=== PATIENT | female | born 1955 | race Caucasian/White ===

== ENCOUNTER → 2017-06-23 | Outpatient (CLI) | payer BC, MEDICAID ==
[2017-06-23 10:42] LABS: HEMATOCRIT 40.8 % (36.0-47.0); HEMOGLOBIN 13.4 g/dL (12.0-15.5); HGB HCT DIFFERENCE -0.6; MEAN CORPUSCULAR HEMOGLOBIN 29.4 pg (27.0-33.4); MEAN CORPUSCULAR HGB CONC 32.8 g/dL (32.0-36.0); MEAN CORPUSCULAR VOLUME 90 fl (80-97); PROTHROMBIN TIME 13.8 SEC (11.4-15.4); RED BLOOD COUNT 4.56 10^6/uL (3.72-5.28); RED CELL DISTRIBUTION WIDTH 13.6 % (11.5-14.0); WHITE BLOOD COUNT 4.7 10^3/uL (4.0-10.5)
[2017-06-23 10:43] LABS: PARTIAL THROMBOPLASTIN TIME 29.9 SEC (23.5-35.8)
[2017-06-23 10:56] LABS: ANION GAP 16 (5-19); BLOOD UREA NITROGEN 14 mg/dL (7-20); CALCIUM 9.7 mg/dL (8.4-10.2); CARBON DIOXIDE 28 mmol/L (22-30); CHLORIDE 96 mmol/L (98-107); CREATININE RESULT 0.64 mg/dL (0.52-1.25); GLUCOSE 344 mg/dL (75-110); POTASSIUM 4.1 mmol/L (3.6-5.0)
== END ==
LOC: OD 09:09
PROVIDERS: ATTEND Internal Medicine Interventional Cardiology
DX: I25.10 Atherosclerotic heart disease of native coronary artery without angina pectoris (principal)
CPT/HCPCS: 36415; 80048; 85027; 85610; 85730

== ENCOUNTER → 2017-09-29 | Outpatient (CLI) | payer BC ==
[2017-09-29 13:44] LABS: ABSOLUTE EOSINOPHILS # (AUTO) 0.2 10^3/uL (0.0-0.6); ABSOLUTE LYMPHOCYTES (AUTO) 2.1 10^3/uL (0.5-4.7); ABSOLUTE MONOCYTES (AUTO) 0.5 10^3/uL (0.1-1.4); ABSOLUTE NEUT (AUTO) 3.4 10^3/uL (1.7-8.2); BASOPHILS % (AUTO) 0.6 % (0-2); EOSINOPHILS % (AUTO) 3.3 % (0-6); HEMATOCRIT 42.1 % (36.0-47.0); HEMOGLOBIN 14.1 g/dL (12.0-15.5); LYMPHOCYTES % (AUTO) 33.2 % (13-45); MEAN CORPUSCULAR HEMOGLOBIN 29.4 pg (27.0-33.4); MEAN CORPUSCULAR HGB CONC 33.4 g/dL (32.0-36.0); MEAN CORPUSCULAR VOLUME 88 fl (80-97); MONOCYTES % (AUTO) 8.5 % (3-13); PLATELET COUNT 261 10^3/uL (150-450); RED BLOOD COUNT 4.78 10^6/uL (3.72-5.28); SEGMENTED NEUTROPHILS % (AUTO) 54.4 % (42-78); TOTAL CELLS COUNTED % (AUTO) 100 %; WHITE BLOOD COUNT 6.3 10^3/uL (4.0-10.5)
[2017-09-29 13:54] LABS: INTERNATIONAL RATION (INR) 0.99; PROTHROMBIN TIME 13.8 SEC (11.4-15.4)
[2017-09-29 13:55] LABS: PARTIAL THROMBOPLASTIN TIME 29.2 SEC (23.5-35.8)
[2017-09-29 14:09] LABS: ANION GAP 10 (5-19); BLOOD UREA NITROGEN 13 mg/dL (7-20); CALCIUM 9.3 mg/dL (8.4-10.2); CARBON DIOXIDE 28 mmol/L (22-30); CHLORIDE 99 mmol/L (98-107); GLUCOSE 283 mg/dL (75-110); POTASSIUM 4.2 mmol/L (3.6-5.0); SODIUM 136.7 mmol/L (137-145)
== END ==
LOC: OD 12:31
PROVIDERS: ATTEND Internal Medicine Interventional Cardiology
DX: Z01.812 Encounter for preprocedural laboratory examination (principal)
CPT/HCPCS: 36415; 80048; 85025; 85610; 85730

== ENCOUNTER → 2018-02-21 | Outpatient (CLI) | payer BC ==
--- NOTE | 2018-02-22 09:29 | WOMENS IMAGING REPORT ---
EXAM DESCRIPTION: BILAT SCREENING MAMMO W/CAD COMPLETED DATE/TIME: 02/21/2018 2:14 pm REASON FOR STUDY: SCREENING MAMMO Z12.31 ENCNTR SCREEN MAMMOGRAM FOR MALIGNANT NEOPLASM OF SAUNDRA COMPARISON: None. TECHNIQUE: Standard craniocaudal and mediolateral oblique views of each breast recorded using [employer] l acquisition. LIMITATIONS: None. FINDINGS: RIGHT BREAST MASSES: No suspicious masses. CALCIFICATIONS: No new or suspicious calcifications. ARCHITECTURAL DISTORTION: None. DEVELOPING DENSITY: None. ASYMMETRY: None noted. OTHER: No other significant findings. LEFT BREAST MASSES: No suspicious masses. CALCIFICATIONS: No new or suspicious calcifications. ARCHITECTURAL DISTORTION: None. DEVELOPING DENSITY: 9 mm developing density on the MLO view inferiorly 9 cm from the nipple. ASYMMETRY: None noted. OTHER: No other significant findings. Read with the assistance of CAD. .[facility] - R2 Cenova Version 1.3 .[facility] Imaging - R2 Cenova Version 1.3 .[facility] Imaging - R2 Cenova Version 2.4 .[facility] - R2 Cenova Version 2.4 .[facility] - R2 Gas Plant Repairer Version 9.2 IMPRESSION: 9 mm developing density on the left for which true lateral view, exaggerated CC views, t omosynthesis and potentially ultrasound will be performed. Alternatively, cone compression views cou ld be performed rather than tomosynthesis. BREAST DENSITY: b. There are scattered areas of fibroglandular density. BIRAD: 0 Incomplete: Needs Additional Imaging Evaluation and/or prior Mammograms for Comparison. RECOMMENDATION: RECOMMENDED FOLLOW-UP: Additional views and potentially ultrasound of the left breas t. The patient will be contacted for additional imaging. COMMENT: The patient has been notified of the results by letter per SA requirements. Additional no tification policies are in place for contacting patient with suspicious or incomplete findings. Quality ID #[id number]: The [employer] recommends an annual screening mammogram for women aged 40 years or over. This facility utilizes a reminder system to ensure that all patients receive reminder letters, and/or direct phone calls for appointments. This includes reminders for routine scr eening mammograms, diagnostic mammograms, or other Breast Imaging Interventions when appropriate. Th is patient will be placed in the appropriate reminder system. The [employer] (ACR) has developed recommendations for screening MRI of the breast s in certain patient populations, to be used in conjunction with mammography. Breast MRI surveillanc e may be appropriate for women with more than 20% lifetime risk of developing breast cancer as deter mined by genetic testing, significant family history of the disease, or history of mantle radiation f or Hodgkins Disease. ACR Practice Guidelines 2008. TECHNICAL DOCUMENTATION: FINDING NUMBER: (1) ASSESSMENT: (1) JOB ID: [id number] [employer]- All Rights Reserved Reading location - IP/workstation name: [email or web address]
== END ==
LOC: WI 13:03
PROVIDERS: ATTEND Physician Assistant Medical
DX: Z12.31 Encounter for screening mammogram for malignant neoplasm of breast (principal); R92.2 Inconclusive mammogram
CPT/HCPCS: 77067

== ENCOUNTER → 2018-03-02 | Outpatient (CLI) | payer BC ==
--- NOTE | 2018-03-04 08:10 | WOMENS IMAGING REPORT ---
EXAM DESCRIPTION: LEFT DIAGNOSTIC MAMMO W/CAD; U/S BREAST UNILAT LIMITED COMPLETED DATE/TIME: 03/02/2018 11:38 am; 03/02/2018 11:39 am REASON FOR STUDY: INCONCLUSIVE; R92.2; N63.20 R92.2 INCONCLUSIVE MAMMOGRAM COMPARISON: Multiple mammograms since 2007 TECHNIQUE: Cone compression Standard craniocaudal and mediolateral oblique images, left whole breast 90 mediolateral view recorded with digital acquisition. Left breast ultrasound was also performed LIMITATIONS: None. FINDINGS: BREAST: Left MASSES: A well-circumscribed low-density mammographic nodule is present along the lower outer quadran t, about 9 mm in size. This correlates with a sebaceous cyst at ultrasound today. CALCIFICATIONS: No new or suspicious calcifications. ARCHITECTURAL DISTORTION: None. DEVELOPING DENSITY: None. ASYMMETRY: None noted. OTHER: No other significant findings. Read with the assistance of CAD. .[facility] - R2 Cenova Version 1.3 .[facility] Imaging - R2 Cenova Version 1.3 .[facility] Imaging - R2 Cenova Version 2.4 .[facility] - R2 Cenova Version 2.4 .[facility] - R2 [employer] Version 9.2 Left breast ultrasound: Ultrasound of the inframammary fold was performed. At the 4 to 5 o'clock position left breast, just deep to the skin surface a well-circumscribed 9 x 7 mm hypoechoic cyst with low level internal echoes is present. No internal color flow. This is a benign sebaceous cyst. IMPRESSION: No mammographic or sonographic evidence for malignancy left breast. BREAST DENSITY: b. There are scattered areas of fibroglandular density. BIRAD: 2 Benign findings. RECOMMENDATION: RECOMMENDED FOLLOW UP: Please continue yearly bilateral screening mammography/ tomos ynthesis in February 2019. SPECIFIC INTERVENTION/IMAGING/CONSULTATION RECOMMENDED:No additional intervention/ imaging/consultati on needed at this time. COMMUNICATION:Patient notified by letter COMMENT: The patient has been notified of the results by letter per MQSA requirements. Additional no tification policies are in place for contacting patient with suspicious or incomplete findings. Quality ID #[id number]: The [employer] recommends an annual screening mammogram for women aged 40 years or over. This facility utilizes a reminder system to ensure that all patients receive reminder letters, and/or direct phone calls for appointments. This includes reminders for routine scr eening mammograms, diagnostic mammograms, or other Breast Imaging Interventions when appropriate. Th is patient will be placed in the appropriate reminder system. The [employer] (ACR) has developed recommendations for screening MRI of the breast s in certain patient populations, to be used in conjunction with mammography. Breast MRI surveillanc e may be appropriate for women with more than 20% lifetime risk of developing breast cancer as deter mined by genetic testing, significant family history of the disease, or history of mantle radiation f or Hodgkins Disease. ACR Practice Guidelines 2008. TECHNICAL DOCUMENTATION: FINDING NUMBER: (1) ASSESSMENT: (1) JOB ID: [id number] [employer]- All Rights Reserved Reading location - IP/workstation name: [email or web address]
--- NOTE | 2018-03-04 08:10 | WOMENS IMAGING REPORT ---
EXAM DESCRIPTION: LEFT DIAGNOSTIC MAMMO W/CAD; U/S BREAST UNILAT LIMITED COMPLETED DATE/TIME: 03/02/2018 11:38 am; 03/02/2018 11:39 am REASON FOR STUDY: INCONCLUSIVE; R92.2; N63.20 R92.2 INCONCLUSIVE MAMMOGRAM COMPARISON: Multiple mammograms since 2007 TECHNIQUE: Cone compression Standard craniocaudal and mediolateral oblique images, left whole breast 90 mediolateral view recorded with digital acquisition. Left breast ultrasound was also performed LIMITATIONS: None. FINDINGS: BREAST: Left MASSES: A well-circumscribed low-density mammographic nodule is present along the lower outer quadran t, about 9 mm in size. This correlates with a sebaceous cyst at ultrasound today. CALCIFICATIONS: No new or suspicious calcifications. ARCHITECTURAL DISTORTION: None. DEVELOPING DENSITY: None. ASYMMETRY: None noted. OTHER: No other significant findings. Read with the assistance of CAD. .[facility] - R2 Cenova Version 1.3 .[facility] Imaging - R2 Cenova Version 1.3 .[facility] Imaging - R2 Cenova Version 2.4 .[facility] - R2 Cenova Version 2.4 .[facility] - R2 Power Generation Engineer Version 9.2 Left breast ultrasound: Ultrasound of the inframammary fold was performed. At the 4 to 5 o'clock position left breast, just deep to the skin surface a well-circumscribed 9 x 7 mm hypoechoic cyst with low level internal echoes is present. No internal color flow. This is a benign sebaceous cyst. IMPRESSION: No mammographic or sonographic evidence for malignancy left breast. BREAST DENSITY: b. There are scattered areas of fibroglandular density. BIRAD: 2 Benign findings. RECOMMENDATION: RECOMMENDED FOLLOW UP: Please continue yearly bilateral screening mammography/ tomos ynthesis in February 2019. SPECIFIC INTERVENTION/IMAGING/CONSULTATION RECOMMENDED:No additional intervention/ imaging/consultati on needed at this time. COMMUNICATION:Patient notified by letter COMMENT: The patient has been notified of the results by letter per MQSA requirements. Additional no tification policies are in place for contacting patient with suspicious or incomplete findings. Quality ID #[id number]: The [employer] recommends an annual screening mammogram for women aged 40 years or over. This facility utilizes a reminder system to ensure that all patients receive reminder letters, and/or direct phone calls for appointments. This includes reminders for routine scr eening mammograms, diagnostic mammograms, or other Breast Imaging Interventions when appropriate. Th is patient will be placed in the appropriate reminder system. The [employer] (ACR) has developed recommendations for screening MRI of the breast s in certain patient populations, to be used in conjunction with mammography. Breast MRI surveillanc e may be appropriate for women with more than 20% lifetime risk of developing breast cancer as deter mined by genetic testing, significant family history of the disease, or history of mantle radiation f or Hodgkins Disease. ACR Practice Guidelines 2008. TECHNICAL DOCUMENTATION: FINDING NUMBER: (1) ASSESSMENT: (1) JOB ID: [id number] [employer]- All Rights Reserved Reading location - IP/workstation name: [email or web address]
== END ==
LOC: WI 11:03
PROVIDERS: ATTEND Physician Assistant Medical
DX: N60.82 Other benign mammary dysplasias of left breast (principal)
CPT/HCPCS: 76642

== ENCOUNTER → 2019-04-28 | Outpatient (CLI) | payer MEDICARE, MEDICAID ==
--- NOTE | 2019-04-29 10:00 | XCELERA REPORT ---
[address] [facility] [address] Lower Extremity Venous Evaluation Procedure: Color flow and duplex imaging of the veins of the right lower extremity as well as the left Common Femoral vein. Right Sided Venous Evaluation Normal vessel filling wall to wall, compression and augmentation as well as Colour flow down to the infrageniculate veins. Left Sided Venous Evaluation The left common femoral vein is fully compressible. Spontaneous and phasic flow is present in the left common femoral vein. Interpretation Summary No duplex evidence of DVT or obstruction in the right lower extremity nor in the left Common Femoral vein. Name: KENDAL DALTON Age: 63 yrs Gender: Female : 1955 Patient Status: Outpatient Patient Location: Study Date: 04/28/2019 04:45 PM Reason For Study: RLE PAIN EDEMA Ordering Physician: VINCE ANDERSON Performed By: Viry Berrios : VINCE ANDERSON > Cory Alejandra
== END ==
LOC: SP 16:12
PROVIDERS: ATTEND Physician Assistant
DX: R60.9 Edema, unspecified (principal); M79.604 Pain in right leg
CPT/HCPCS: 93971

== ENCOUNTER → 2019-05-01 | Outpatient (CLI) | payer MEDICARE, MEDICAID ==
--- NOTE | 2019-05-02 13:09 | RADIOLOGY REPORT (SQ) ---
EXAM DESCRIPTION: MRI RT LOWER EXTREMITY WITHOUT COMPLETED DATE/TIME: 05/01/2019 9:05 pm REASON FOR STUDY: S91.109A UNSP OPEN WOUND OF UNSP TOE(S) W/O DAMAGE TO NAIL, INIT S91.109A UNSP OP EN WOUND OF UNSP TOE(S) W/O DAMAGE TO NAIL, COMPARISON: None. TECHNIQUE: Multiplanar imaging of the right forefoot to include fat and fluid sensitive sequences. LIMITATIONS: Motion. Fat saturation artifact. FINDINGS: BONE MARROW: No significant marrow abnormality. SOFT TISSUES: Edema in the soft tissues of the 2nd through the 5th phalanges. No abscess or large he matoma. OTHER: No other significant finding. IMPRESSION: NO EVIDENCE FOR OSTEOMYELITIS. TECHNICAL DOCUMENTATION: JOB ID: [id number] [employer]- All Rights Reserved Reading location - IP/workstation name: [email or web address]
== END ==
LOC: RAD 19:40
PROVIDERS: ATTEND Physician Assistant
DX: S91.109A Unspecified open wound of unspecified toe(s) without damage to nail, initial encounter (principal); L03.90 Cellulitis, unspecified; X58.XXXA Exposure to other specified factors, initial encounter

== ENCOUNTER 2019-10-17 15:50 | Emergency (ER) | payer OTHER, MEDICAID ==
[2019-10-17] MEDS ORDERED: NITROGLYCERIN 2% OINTMENT 1 GM PACKET TP ONE (16:16)
[2019-10-17 16:21] LABS: ABSOLUTE BASOPHILS # (AUTO) 0.1 10^3/uL (0.0-0.2); ABSOLUTE EOSINOPHILS # (AUTO) 0.1 10^3/uL (0.0-0.6); ABSOLUTE MONOCYTES (AUTO) 0.7 10^3/uL (0.1-1.4); ABSOLUTE NEUT (AUTO) 3.9 10^3/uL (1.7-8.2); BASOPHILS % (AUTO) 0.7 % (0-2); EOSINOPHILS % (AUTO) 1.8 % (0-6); HEMATOCRIT 41.5 % (36.0-47.0); HEMOGLOBIN 14.1 g/dL (12.0-15.5); LYMPHOCYTES % (AUTO) 38.7 % (13-45); MEAN CORPUSCULAR HEMOGLOBIN 28.9 pg (27.0-33.4); MEAN CORPUSCULAR HGB CONC 34.1 g/dL (32.0-36.0); MEAN CORPUSCULAR VOLUME 85 fl (80-97); MONOCYTES % (AUTO) 9.3 % (3-13); PLATELET COUNT 305 10^3/uL (150-450); RED CELL DISTRIBUTION WIDTH 15.1 % (11.5-14.0); SEGMENTED NEUTROPHILS % (AUTO) 49.5 % (42-78); TOTAL CELLS COUNTED % (AUTO) 100 %; WHITE BLOOD COUNT 7.9 10^3/uL (4.0-10.5)
--- NOTE | 2019-10-17 16:23 | EKG REPORT ---
SEVERITY:- ABNORMAL ECG - SINUS TACHYCARDIA VENTRICULAR PREMATURE COMPLEX LEFT BUNDLE BRANCH BLOCK : Confirmed by: Yael Hsu MD 17-Oct-2019 16:22:14
--- NOTE | 2019-10-17 16:25 | ER Document Report ---
ED General - General Chief Complaint: Chest Pain Stated Complaint: CHEST PAIN Time Seen by Provider: 10/17/19 16:04 Primary Care Provider: VINCE ANDERSON PA-C [Primary Care Provider] - Follow up as needed TRAVEL OUTSIDE OF THE [place] IN LAST 30 DAYS: No - HPI Notes: Patient is a 63-year-old female with a known history of coronary artery disease, peripheral artery disease, who presents to the emergency department for evaluation of chest pain and dyspnea on exertion. She states that the chest pain is not exactly new, but it has been worse over the last 2 weeks. She states that even with the slightest bit of exertion she has chest pain. She points to the parasternal area on the left. It does not radiate. She has associated shortness of breath and occasional nausea with this. She states that rest does relieve her pain. Patient has multiple stents, last heart cath eterization was in 2018, which point no stents were placed. She states she is been told she is not a candidate for bypass. The patient does state that she has had prolonged immobility over the last several months following arterial bypass, colovesicular fistula, and frequent UTIs. She states she has been taking her medications as prescribed. At this point, she states she has no chest pain. She states she feels slightly nauseated. States that shortness of breath that she had was relieved by the oxygen placed by EMS. Of note, the patient was at the [facility] in [place] when a repeat EKG was performed. She was noted to have a left bundle branch block. This is different from prior studies. - Related Data Allergies/Adverse Reactions: No Known Allergies Allergy (Verified 08/05/15 12:50) Home Medications: Aspirin 81 mg daily, bisoprolol 10 mg daily, Plavix 75 mg daily, Flexeril 10 mg 3 times daily as needed, Cymbalta 60 mg daily, diclofenac gel as needed, Lasix 40 mg twice daily, isosorbide mononitrate extended release 30 mg daily, Lantus 45 units subcutaneously once daily, Synthroid 125 mcg daily, losartan 25 mg daily, magnesium oxide 400 mg twice daily, Movantik 12-1/2 mg daily, nitroglycerin spray as needed, NovoLog 10 units 3 times daily, Percocet 7.5/325 every 6 hours as needed, Ozempic 1 mg subcutaneously weekly, Protonix 20 mg daily, potassium 20 mEq twice daily, Ranexa 1 g twice daily, repaglinide 2 mg daily, Repatha 140 mg subcutaneously every 2 weeks, Crestor 40 mg daily, daly sulosin 0.4 mg daily Past Medical History - General Information source: Patient - Social History Smoking Status: Former Smoker Drug Abuse: None Family History: Reviewed & Not Pertinent - Medical History Notes: Iron deficiency anemia - Past Medical History Cardiac Medical History: Reports: Hx Coronary Artery Disease, Hx Hypercholesterolemia, Hx Hypertension, Hx Peripheral Vascular Disease Pulmonary Medical History: Reports: Hx COPD Endocrine Medical History: Reports: Hx Diabetes Mellitus Type 2 Psychiatric Medical History: Reports: Hx Depression Past Surgical History: Reports: Hx Cardiac Catheterization, Hx Cholecystectomy, Hx Hysterectomy, Hx Tonsillectomy, Other - Arterial bypass, right leg - Immunizations Hx Diphtheria, Pertussis, Tetanus Vaccination: No Review of Systems - Review of Systems Constitutional: See HPI EENT: No symptoms reported Cardiovascular: See HPI Respiratory: See HPI Gastrointestinal: See HPI Genitourinary: No symptoms reported Musculoskeletal: No symptoms reported Skin: No symptoms reported Neurological/Psychological: No symptoms reported Physical Exam - Vital signs Vitals: BP Pulse Ox 105/67 97 10/17/19 16:09 10/17/19 16:09 - Notes Notes: This is a 63-year-old female who appears her stated age in no acute distress. She is on cotton bed 3, does not appear to be having any difficulty breathing. Vital signs reviewed, please refer to chart. Head is normocephalic, atraumatic. Pupils equal round, reactive to light. Neck is supple without meningismus. Heart is regular rate and rhythm. Lungs are clear to auscultation bilaterally. Abdomen is soft, nontender, normoactive bowel sounds throughout. Extremities without cyanosis, clubbing. She has a moderate amount of edema with a chronic appearing wound to the right calf with some mild reactive appearing erythema surrounding. Right posterior calf is tender. Peripheral pulses are equal. Skin is warm and dry. Patient is awake, alert, neurological exam is nonfocal. Course - Re-evaluation Re-evalutation: 10/17/19 16:26 Patient presents to the emergency department for evaluation. She complains of chest pain upon exertion with associated dyspnea. She is borderline tachycardic upon arrival. Certainly I am concerned about the possibility of unstable angina in this patient with a known history of coronary artery disease. I am also, however, highly concerned about the possibility of a pulmonary embolus given her prolonged immobility over the last several months and her swollen right leg. Decision was made to proceed with CT angiogram of the chest in addition to cardiac work-up. She is currently chest pain-free. Her blood pressure is borderline, with a systolic of 105. Half a gram of Nitropaste was placed to the anterior chest wall. Her nausea was treated with Zofran. We will continue to monitor. 10/17/19 17:32 Patient's first troponin is undetectable. She is reevaluated and does not have any chest pain at this time. I still do have a very high index of suspicion for pulmonary embolus in this patient. She did however, have a slight decrease in her renal function. Her GFR is 39. Given my index of suspicion, I do think it is prudent to perform the CT angiogram regardless. I explained this to the patient in great detail. She agrees at this time to consent for IV dye use. 10/17/19 22:37 CT angiogram of the chest was unremarkable for any signs of blood clot, pulmonary disease, or pericardial effusion. Patient has not had any chest pain since arrival. Her second set of cardiac enzymes came back negative. At this point, patient feels comfortable with discharge. I explained her that her EKG was in fact different and she needs to follow-up closely with her automat car attendant. She voiced understanding. Otherwise, she is to return to the ED with worsening or new concerning symptoms of any sort. - Vital Signs Vital signs: Temp Pulse Resp BP Pulse Ox 98.5 F 15 100/58 L 93 10/17/19 17:10 10/17/19 21:30 10/17/19 21:30 10/17/19 21:30 - Laboratory Result Diagrams: 10/17/19 15:45 10/17/19 15:45 Laboratory results interpreted by me: 10/17/19 10/17/19 10/17/19 15:45 15:45 15:45 RDW 15.1 H Chloride 97 L BUN 22 H Creatinine 1.37 H Est GFR ( Amer) 47 L Est GFR (MDRD) Non-Af 39 L Glucose 149 H NT-Pro-B Natriuret Pep 491 H - Diagnostic Test Radiology reviewed: Image reviewed, Reports reviewed Radiology results interpreted by me: 10/17/19 22:38 Chest X-Ray 10/17/19 15:54 IMPRESSION: NO SIGNIFICANT RADIOGRAPHIC FINDING IN THE CHEST. Chest/Abdomen CTA 10/17/19 16:17 IMPRESSION: 1. No pulmonary embolism. 2. No acute pulmonary disease. - EKG Interpretation by Me Additional EKG results interpreted by me: 10/17/19 16:27 Sinus mechanism with a rate of 94 bpm. Left axis deviation, left bundle branch block. This is new when compared to prior study in December 2018. Discharge - Discharge Clinical Impression: Dyspnea on exertion, Left bundle branch block Chest pain Qualifiers: Chest pain type: unspecified Qualified Code(s): R07.9 - Chest pain, unspecified Condition: Stable Disposition: HOME, SELF-CARE Instructions: Chest Pain of Unclear Cause ([facility]), Dyspnea, Nonspecific ([facility]) Additional Instructions: No clear cause was found for your symptoms today. Please follow-up closely with your primary care provider and your automat car attendant this week. Continue your medications as prescribed. Return to the emergency department with worsening or new concerning symptoms of any sort. Referrals: VINCE ANDERSON PA-C [Primary Care Provider] - Follow up as needed
[2019-10-17] MEDS ORDERED: ONDANSETRON HCL INJ/PF 4 MG/2 ML SDV IV ONE (16:26)
--- NOTE | 2019-10-17 16:44 | RADIOLOGY REPORT (SQ) ---
EXAM DESCRIPTION: CHEST SINGLE VIEW COMPLETED DATE/TIME: 10/17/2019 4:34 pm REASON FOR STUDY: chest pain COMPARISON: None. NUMBER OF VIEWS: One view. TECHNIQUE: Single frontal radiographic view of the chest acquired. LIMITATIONS: None. FINDINGS: LUNGS AND PLEURA: No opacities, masses or pneumothorax. No pleural effusion. MEDIASTINUM AND HILAR STRUCTURES: No masses. Contour normal. HEART AND VASCULAR STRUCTURES: Heart normal in size. Normal vasculature. BONES: No acute findings. HARDWARE: None in the chest. OTHER: No other significant finding. IMPRESSION: NO SIGNIFICANT RADIOGRAPHIC FINDING IN THE CHEST. TECHNICAL DOCUMENTATION: JOB ID: [id number] [employer]- All Rights Reserved Reading location - IP/workstation name: [email or web address]
[2019-10-17 16:47] LABS: ALBUMIN 4.3 g/dL (3.5-5.0); ALKALINE PHOSPHATASE 116 U/L (38-126); ANION GAP 15 (5-19); ASPARTATE AMINO TRANSFERASE 33 U/L (14-36); BILIRUBIN,DIRECT 0.4 mg/dL (0.0-0.4); BILIRUBIN,TOTAL 0.5 mg/dL (0.2-1.3); BLOOD UREA NITROGEN 22 mg/dL (7-20); CALCIUM 9.5 mg/dL (8.4-10.2); CARBON DIOXIDE 26 mmol/L (22-30); CHLORIDE 97 mmol/L (98-107); CREATINE KINASE 51 U/L (30-135); GLUCOSE 149 mg/dL (75-110); POTASSIUM 4.3 mmol/L (3.6-5.0); TOTAL PROTEIN 7.1 g/dL (6.3-8.2)
[2019-10-17 16:59] LABS: CREATINE KINASE MB 1.84 ng/mL (<4.55)
[2019-10-17 17:01] LABS: TROPONIN I < 0.012 ng/mL
[2019-10-17] MEDS ORDERED: NORMAL SALINE 500 ML IV ONE (17:17)
--- NOTE | 2019-10-17 18:43 | RADIOLOGY REPORT (SQ) ---
EXAM DESCRIPTION: CTA CHEST COMPLETED DATE/TIME: 10/17/2019 5:24 pm REASON FOR STUDY: chest pain, MARTÍNEZ, r/o PE COMPARISON: Chest radiograph same date. TECHNIQUE: CT scan of the chest performed using helical scanning technique with dynamic intravenous contrast injection. Images reviewed with lung, soft tissue and bone windows. Reconstructed coronal and sagittal MPR images reviewed. Additional 3 dimensional post-processing performed to develop Maximal Intensity Projection images (NH P). All images stored on PACS. All CT scanners at this facility use dose modulation, iterative reconstruction, and/or weight based d osing when appropriate to reduce radiation dose to as low as reasonably achievable (ALARA). [facility]: Dose Right [facility]: CareDose [facility]: Dose Right [facility]: Teradose 4D [facility]: WorkHands CONTRAST TYPE AND DOSE: contrast/concentration: Isovue 350.00 mg/ml; Total Contrast Delivered: 52.0 ml; Total Saline Delivered: 56.9 ml Contrast bolus optimized for the pulmonary arteries. Not diagnostic for the aorta. RENAL FUNCTION: Creatinine 1.37 RADIATION DOSE: CT Rad equipment meets quality standard of care and radiation dose reduction techniq ues were employed. CTDIvol: 3.3 - 21.7 mGy. DLP: 804 mGy-cm. . LIMITATIONS: None. FINDINGS: LUNGS AND PLEURA: Respiratory motion obscures D trachea has normal caliber and appearance. No bronchial wall thickening or bronchiectasis. No focal consolidation or pleural effusion. No mari spicious pulmonary nodules. AORTA AND GREAT VESSELS: No aneurysm. Contrast bolus not optimized for the aorta. HEART: No pericardial effusion. No significant coronary artery calcifications. PULMONARY ARTERIES: No emboli visualized in the main pulmonary arteries or the segmental branches. HILAR AND MEDIASTINAL STRUCTURES: No identified masses or abnormal nodes. HARDWARE: None in the chest. UPPER ABDOMEN: No significant findings. Limited exam. THYROID AND OTHER SOFT TISSUES: No masses. No adenopathy. BONES: No acute or significant finding. 3D MIPS: Confirm above findings. OTHER: No other significant finding. IMPRESSION: 1. No pulmonary embolism. 2. No acute pulmonary disease. COMMENT: Quality ID # [id number]: Final reports with documentation of one or more dose reduction techniques (e.g., Automated exposure control, adjustment of the mA and/or kV according to patient size, use of iterative reconstruction technique) TECHNICAL DOCUMENTATION: JOB ID: [id number] [employer]- All Rights Reserved Reading location - IP/workstation name: [email or web address]
[2019-10-17 22:46] VITALS: BP 118/63
--- NOTE | 2019-10-18 08:22 | XCELERA REPORT ---
[address] [place] [facility] [address] Lower Extremity Venous Evaluation Procedure: Color flow and duplex imaging of the veins of the right lower extremity as well as the left Common Femoral vein. Right Sided Venous Evaluation Normal vessel filling wall to wall, compression and augmentation as well as Colour flow down to the infrageniculate veins. Left Sided Venous Evaluation The left common femoral vein is fully compressible. Spontaneous and phasic flow is present in the left common femoral vein. Interpretation Summary No duplex evidence of DVT or obstruction in the right lower extremity nor in the left Common Femoral vein. Name: KENDAL DALTON Age: 63 yrs Gender: Female : 1955 Patient Status: Emergency Patient Location: ER Study Date: 10/17/2019 08:51 PM Reason For Study: pain right leg / Hx clots Ordering Physician: AMANDO AMES Performed By: Linda Phillips : AMANDO AMES > Cory Alejandra
== END 2019-10-17 22:54 | disposition home or self-care (01) ==
LOC: ER 15:50
DX: R07.9 Chest pain, unspecified (principal); I44.7 Left bundle-branch block, unspecified; R06.02 Shortness of breath; R11.0 Nausea; R60.0 Localized edema; L53.9 Erythematous condition, unspecified; I25.10 Atherosclerotic heart disease of native coronary artery without angina pectoris; F32.9 Major depressive disorder, single episode, unspecified; J44.9 Chronic obstructive pulmonary disease, unspecified; E11.51 Type 2 diabetes mellitus with diabetic peripheral angiopathy without gangrene; Z95.5 Presence of coronary angioplasty implant and graft; Z79.82 Long term (current) use of aspirin; Z79.02 Long term (current) use of antithrombotics/antiplatelets; Z79.899 Other long term (current) drug therapy; Z79.4 Long term (current) use of insulin
CPT/HCPCS: 93005; 99285; 96361; 96374; 36415; 82553; 82550; 85025; 80053; 84484; 83880; 93971 ×2; 71045; 71275; 93010; J2405; J7040